=== PATIENT | male | born 1945 | race Caucasian/White ===

== ENCOUNTER → 2019-06-13 | Day surgery (SDC) | payer MEDICARE, OTHER ==
[2019-06-06 14:37] LABS: BASOPHILS # (AUTO) 0.1 (0.0-0.1); BASOPHILS % 0.5 % (0.0-1.0); EOSINOPHILS # (AUTO) 0.3 (0.0-0.4); EOSINOPHILS % 2.4 % (0.0-6.0); HEMATOCRIT 42.4 % (38.2-49.6); HEMOGLOBIN 13.7 g/dL (14.0-18.0); LYMPHOCYTES # (AUTO) 2.4 (1.0-3.2); LYMPHOCYTES % 17.9 % (18.0-39.1); MEAN CORPUSCULAR HEMOGLOBIN 29.5 pg (28-32); MEAN CORPUSCULAR HGB CONC 32.3 g/dL (31-35); MEAN CORPUSCULAR VOLUME 91.2 fL (81-99); MONOCYTES % 7.4 % (4.4-11.3); NEUTROPHILS # (AUTO) 9.4 (2.1-6.9); NEUTROPHILS % 70.8 % (38.7-80.0); PLATELET COUNT 289 x10e3/uL (140-360); RED BLOOD COUNT 4.65 x10e6/uL (4.3-5.7); RED CELL DISTRIBUTION WIDTH 13.4 % (11.7-14.4)
[~2019-06-13] MED LIST: ASPIRIN81 MG; CENTRUM SILVER1 EAC3; DETEMIR IJ; EPINEPHRINE HCL 1:1000 1ML 1 MG/ML AMP ONE; FENTANYL CITRATE/PF 100MCG/2 ML INJ ONE; GLIMEPIRIDE2 MG PO; GLIPIZIDE10 MG; GLUCAGON FOR INJ 1 MG VIAL ONE; HYDROCHLOROTHIA25 MG; LEVOTHYROXINE175 MCG; LEVOTHYROXINE200 MCG; LISINOPRIL10 MG; LOSARTAN POTAS100 MG; METFORMIN HCL850 MG; MIDAZOLAM HCL 2 MG/2 ML VIAL ONE; PIOGLITAZONE PO; PROPOFOL IV EMULSION 10 MG/ML 50 ML VIAL ONE; SIMVASTATIN40 MG; VITAMIN D3 PO
--- OUTSIDE RECORDS SUMMARY | 2019-06-13 05:38 | XMS REPORT | Clinical Summary ---
Author Author EMIL[facility] Address Unknown Phone Unavailable Care Team Providers [facility] Name Role Phone PCP Unavailable Allergies Comments Active Allergy Reactions Severity Noted Date Penicillins Low 11/25/2018 Insulin Glargine Rash Low 11/25/2017 Medications End Date Status Medication Sig Dispensed Refills Start Date Active insulin pen needles (BD 2 Units by 0 ULTRA-FINE BRENDON) 4 mm x Miscellaneous 32 G route daily as needed Use as directed. Dispense as written, do not substitute. Brand medically necessary.. Active losartan (COZAAR) 100 MG Take 100 mg 0 tablet by mouth daily. Active simvastatin (ZOCOR) 40 MG Take 40 mg by 0 tablet mouth nightly. Active hydroCHLOROthiazide Take 25 mg by 0 (HYDRODIURIL) 25 MG mouth daily. tablet Active aspirin 81 MG EC tablet Take 81 mg by 0 mouth daily. Active cholecalciferol, vitamin Take 2,000 0 D3, 2,000 unit Tab Units by mouth daily. Active eeluccxv-xpio-czp-folic Take 1 tablet 0 acid by mouth (DMUXHIIGAJIZ-VPIG-YGTLRB daily. LS-FOLIC ACID) 3,500-18-0.4 unit-mg-mg Chew 08/30/2019 Active pioglitazone (ACTOS) 30 Take 1 tablet 90 tablet 0 MG tablet (30 mg total) 9 by mouth daily for 90 days. 08/30/2019 Active glimepiride (AMARYL) 2 MG Take 1 tablet 180 tablet 0 tablet (2 mg total) 9 by mouth 2 (two) times daily with breakfast and dinner for 90 days. 08/30/2019 Active levothyroxine (SYNTHROID, Take 1 tablet 90 tablet 0 LEVOTHROID) 175 MCG (175 mcg 9 tablet total) by mouth Every morning on an empty stomach for 90 days. 08/30/2019 Active insulin detemir U-100 Inject 0.4 72 mL 0 (LEVEMIR FLEXTOUCH U-100 mLs (40 Units 9 INSULN) 100 unit/mL (3 total) mL) InPn injection subcutaneousl y 2 (two) times daily for 90 days. 02/23/2019 Discontinued glimepiride (AMARYL) 2 MG Take 2 mg by 0 tablet mouth daily. 06/01/2019 Discontinued insulin detemir (LEVEMIR Inject 40 0 FLEXTOUCH U-100 INSULN Units SUBQ) subcutaneousl y every evening before dinner. 02/23/2019 Discontinued pioglitazone (ACTOS) 30 Take 30 mg by 0 MG tablet mouth once in morning. 06/01/2019 Discontinued levothyroxine (SYNTHROID, Take 175 mcg 0 LEVOTHROID) 175 MCG by mouth tablet Every morning on an empty stomach. 05/24/2019 glimepiride (AMARYL) 2 MG Take 1 tablet 90 tablet 0 tablet (2 mg total) 9 by mouth daily for 90 days. 05/24/2019 pioglitazone (ACTOS) 30 Take 1 tablet 90 tablet 0 MG tablet (30 mg total) 9 by mouth once in morning for 90 days. Active Problems Problem Noted Date Vitamin D deficiency 02/22/2019 Body mass index (BMI) of 40.0 to 44.9 in adult 05/31/2016 Obesity 03/05/2016 Pure hypercholesterolemia 09/13/2015 Essential hypertension, benign 09/13/2015 Pure hyperglyceridemia 09/13/2015 Hypothyroidism 09/13/2015 Type 2 diabetes mellitus, with long-term current use of insulin 09/13/2015 Encounters Care Team Description Date Type Specialty Rosalba Reyes MD Type 2 diabetes mellitus with hyperglycemia, with long-term current use of insulin ([facility]) (Primary Dx); Acquired hypothyroidism; Pure hypercholesterolemia; Body mass index (BMI) of 40.0 to 44.9 in adult ([facility]) 06/01/2019 Office Visit Endocrinology Rosalba Reyes MD Type 2 diabetes mellitus with hyperglycemia, with long-term current use of insulin ([facility]) (Primary Dx); Acquired hypothyroidism; HTN (hypertension), malignant; Pure hypercholesterolemia; Body mass index (BMI) of 40.0 to 44.9 in adult (HCC); Vitamin D deficiency 02/23/2019 Office Visit Endocrinology Rosalba Reyes MD 02/22/2019 Abstract Endocrinology after 06/12/2018 Family History Medical History Relation Name Comments Lung cancer Father No Known Problem Mother Arthritis Sister Relation Name Status Comments Father (Age 66) Mother Alive Sister Alive Social History Date Tobacco Use Types Packs/Day Years Used Former Smoker 2 20 Smokeless Tobacco: Former User Alcohol Use Drinks/Week oz/Week Comments No Alcohol Habits Answer Date Recorded How often do you have a drink containing alcohol? Never 06/01/2019 How many drinks containing alcohol do you have on Not asked a typical day when you are drinking? How often do you have six or more drinks on one Not asked occasion? Physical Activity Answer Date Recorded On average, how many days per week do you engage 0 days 02/23/2019 in moderate to strenuous exercise (like walking fast, running, jogging, dancing, swimming, biking, or other activities that cause a light or heavy sweat)? On average, how many minutes do you engage in 0 min 02/23/2019 exercise at this level? Sex Assigned at Date Recorded Not on file Industry Job Start Date Occupation Not on file Not on file Not on file Travel End Travel History Travel Start No recent travel history available. Last Filed Vital Signs Time Taken Vital Sign Reading 06/01/2019 9:49 AM CDT Blood Pressure 122/66 06/01/2019 9:49 AM CDT Pulse 81 - Temperature - 06/01/2019 9:49 AM CDT Respiratory Rate 18 - Oxygen Saturation - - Inhaled Oxygen - Concentration 06/01/2019 9:49 AM CDT Weight 121.6 kg (268 lb) 06/01/2019 9:49 AM CDT Height 172.7 cm (5' 8") 06/01/2019 9:49 AM CDT Body Mass Index 40.75 Plan of Treatment Care Team Description Date Type Specialty Rosalba Reyes MD [address] [address] [phone] 08/31/2019 Office Visit Endocrinology Procedures Comments Procedure Name Priority Date/Time Associated Diagnosis BASIC METABOLIC PANEL (7) Routine 05/24/2019 Type 2 diabetes mellitus 12:00 AM CDT with hyperglycemia, with long-term current use of insulin (HCC) HEMOGLOBIN A1C Routine 05/24/2019 Type 2 diabetes mellitus 12:00 AM CDT with hyperglycemia, with long-term current use of insulin (HCC) TSH Routine 05/24/2019 Acquired hypothyroidism 12:00 AM CDT POCT GLUCOSE Routine 02/23/2019 Type 2 diabetes mellitus 3:58 PM CDT with hyperglycemia, with long-term current use of insulin (HCC) MICROALBUMIN, RANDOM Routine 02/17/2019 URINE MICROALBUMIN, RANDOM Routine 02/17/2019 URINE HEMOGLOBIN A1C Routine 02/17/2019 MICROALBUMIN / CREATININE Routine 02/17/2019 URINE RATIO after 06/12/2018 Results * TSH (05/24/2019 12:00 AM CDT) TSH 2.98 0.40 - 4.50 mIU/L [facility] Specimen Blood Narrative Performed At FASTING:YES [facility] FASTING: YES Resulting Agency Comment Performing Organization Information: Site ID: [id number] Name: [facility] Address: [address] [place] [id number] Director: Vilma Pacheco Performing Organization Address City/State/Zipcode Phone Number [facility] [address] [place] [address] [facility] * Hemoglobin A1c (05/24/2019 12:00 AM CDT) Only the most recent of 2 results within the time period is included. Hemoglobin A1c 10.0 (H) <5.7 % of total Hgb [facility] Comment: For someone without known diabetes, a hemoglobin A1c value of 6.5% or greater indicates that they may have diabetes and this should be confirmed with a follow-up test. For someone with known diabetes, a value <7% indicates that their diabetes is well controlled and a value greater than or equal to 7% indicates suboptimal control. A1c targets should be individualized based on duration of diabetes, age, comorbid conditions, and other considerations. Currently, no consensus exists regarding use of hemoglobin A1c for diagnosis of diabetes for children. Specimen Blood Narrative Performed At FASTING:YES [facility] FASTING: YES Resulting Agency Comment Performing Organization Information: Site ID: [id number] Name: [facility] Address: [address] [place] [phone] Director: Vilma Pacheco Performing Organization Address [facility] Phone Number [facility] [address] [place] [address] [facility] * Basic metabolic panel (05/24/2019 12:00 AM CDT) Glucose 162 (H) 65 - 99 mg/dL [facility] Comment: Fasting reference interval For someone without known diabetes, a glucose value >125 mg/dL indicates that they may have diabetes and this should be confirmed with a follow-up test. BUN 24 7 - 25 mg/dL [facility] Creatinine 1.27 (H) 0.70 - 1.18 mg/dL [facility] Comment: For patients >49 years of age, the reference limit for Creatinine is approximately 13% higher for people identified as -[place]. eGFR If NonAfricn Am 56 (L) > OR=60 mL/min/1.73m2 [facility] eGFR If Africn Am 65 > OR=60 mL/min/1.73m2 [facility] BUN/Creatinine Ratio 19 6 - 22 (calc) [facility] Sodium 136 135 - 146 mmol/L [facility] Potassium, Serum 4.4 3.5 - 5.3 mmol/L [facility] Chloride 100 98 - 110 mmol/L [facility] Carbon Dioxide, Total 31 20 - 32 mmol/L [facility] Calcium, Serum 9.4 8.6 - 10.3 mg/dL [facility] Specimen Blood Narrative Performed At FASTING:YES [facility] FASTING: YES Resulting Agency Comment Performing Organization Information: Site ID: [id number] Name: [facility] Address: [address] [place] [phone] Director: Vilma Pacheco Performing Organization Address [facility] Phone Number [facility] [address] [place] [address] [facility] * POCT glucose (02/23/2019 3:58 PM CDT) POC Glucose 166 (A) 70 - 110 mg/dl Specimen Blood * Microalbumin, random urine (02/17/2019) Only the most recent of 2 results within the time period is included. Microalbum.,U,Random 4 [facility] Specimen Urine Performing Organization Address City/State/Zipcode Phone Number [facility] * Microalbumin / creatinine urine ratio (02/17/2019) Microalbum.,U,Random 0.5Comment: Negative [facility] Specimen Urine Performing Organization Address City/State/[facility] Phone Number [facility] after 06/12/2018 Insurance Payer Benefit Subscriber ID Type Phone Address Plan / Group MEDICARE MEDICARE A xxxxxxxxxx Medicare [address] [facility] (Home) [place] [address]
[2019-06-13 10:15] VITALS: BP 131/75
== END | disposition home or self-care (01) ==
LOC: OR 05:29
PROVIDERS: ATTEND Internal Medicine Gastroenterology
DX: Z12.11 Encounter for screening for malignant neoplasm of colon (principal); D12.0 Benign neoplasm of cecum; D12.2 Benign neoplasm of ascending colon; D12.3 Benign neoplasm of transverse colon; K92.1 Melena; K64.8 Other hemorrhoids; M19.90 Unspecified osteoarthritis, unspecified site; E11.9 Type 2 diabetes mellitus without complications; E66.9 Obesity, unspecified; E78.5 Hyperlipidemia, unspecified; E03.9 Hypothyroidism, unspecified; I10 Essential (primary) hypertension; F43.10 Post-traumatic stress disorder, unspecified; Z88.0 Allergy status to penicillin; Z01.810 Encounter for preprocedural cardiovascular examination; Z01.812 Encounter for preprocedural laboratory examination; Z79.84 Long term (current) use of oral hypoglycemic drugs; Z79.82 Long term (current) use of aspirin; Z79.4 Long term (current) use of insulin; Z68.41 Body mass index [BMI] 40.0-44.9, adult; Z87.891 Personal history of nicotine dependence; Z80.0 Family history of malignant neoplasm of digestive organs
CPT/HCPCS: 36415 ×2; 45381; 45384; 45385; 82948; 85025; 88305; 93005; J0171; J1610; J2250; J2704; J3010; 45378